=== PATIENT | female | born 1945 | race Caucasian/White ===

== ENCOUNTER 2018-05-13 19:14 | Emergency (ER) | payer MEDICARE ==
[2018-05-13 19:35] VITALS: TEMP 98.6
--- NOTE | 2018-05-13 19:38 | PCM.RRT ---
<Nieves Bean - Last Filed: 05/13/18 19:35> [employer] Nurses Assessment - Situation Date: 05/13/18 Time HOT TAR ROOFER HELPER was called: 18:49 H[employer] HELPER Location:: [facility] waiting room [employer] HELPER Reason for Call: Change in Mental Status H[employer]AR ROOFER HELPER Called By: Physician, Patient/Family Request - IV IV Inserted during HOT TAR ROOFER HELPER?: Yes - Neurological Status (Select all that apply): Responsive - Constitutional Appears: In Acute Distress - Head Head Exam: ATRAUMATIC, NORMAL INSPECTION - Eyes Eye Exam: EOMI, Normal appearance - Neurological Exam Neurological Exam: Alert, Awake, Oriented x3 Plan - Assessment of Findings&Treatment Plan HOT TAR ROOFER HELPER was called because patient became lightheaded. Patient has past medical history of diabetes and hypertension. Patient stated she did not eat all day except for coffee. Patient was found to be hypertensive. Patient was given one amp of D50. Patient was transferred to the ER. On arrival to the ER patient's B/P 148/54; O2 95%. Blood glucose 186. Patient was alert and oriented x3. <Helen Figueroa V - Last Filed: 05/18/18 16:48> Attending/Attestation - Attestation I have personally seen and examined this patient.: Yes I have fully participated in the care of the patient.: Yes I have reviewed all pertinent clinical information, including history, physical exam and plan: Yes Notes (Text): This is late computer entry for 05/13/18. Brief hospitalist note: near syncope, sweats patient is known diabetic who had not eaten the entire day. her is being treated in [facility] for code [facility]. Patient very sweaty and lethargic, unable to blood sugar and did not want to delay treatment, patient provided peripheral line given amp d50, ekg performed at bedside, and given bag of iv fluids. patient awake, alert, speaking with her son. Endorsed to ed doctor.
[2018-05-13 19:51] LABS: BASO # 0.1 K/uL (0.0-0.2); BASO % 0.8 % (0.0-2.0); EOS # 0.1 K/uL (0.0-0.7); HEMOGLOBIN 10.9 g/dL (11.0-16.0); LYMPH # 1.7 K/uL (1.0-4.3); LYMPH % 23.7 % (20.0-40.0); MEAN CELL VOLUME 83.7 fL (81.0-99.0); MEAN CORPUSCULAR HEMOGLOBIN 27.7 pg (27.0-31.0); MEAN CORPUSCULAR HGB CONC 33.1 g/dL (33.0-37.0); MEAN PLATELET VOLUME 8.7 fL (7.2-11.7); MONO # 0.5 K/uL (0.0-0.8); MONO % 7.2 % (0.0-10.0); NEUT # 4.9 K/uL (1.8-7.0); NEUT % 67.3 % (50.0-75.0); RBC 3.92 Mil/uL (3.80-5.20); RED CELL DISTRIBUTION WIDTH 14.5 % (11.5-14.5); WHITE BLOOD COUNT 7.3 K/uL (4.8-10.8)
[2018-05-13] MEDS ORDERED: Dextrose 50% SYRINGE Inj (50 ml) IV STA ×2 (20:11)
--- NOTE | 2018-05-13 20:16 | C.PDOC ---
History Of Present Illness 72 year old female patient is brought to the ED by nursing day habilitation supervisor and hospitalist from the labor and employment paralegal for evaluation of lightheadedness. Patient was in labor and employment [facility] waiting room when she began feeling sweaty, dizzy and became near-sync opal. Rapid response team was called and unable to obtain patient's blood glucose level. Patient was started on IV and given one amp of D50. Patient was sent to the ED for further evaluation. Patient denies chest pain, shortness of breath or extremity numbness/weakness. Time Seen by Provider: 05/13/18 19:18 Chief Complaint (Nursing): Altered Mental Status History Per: Patient History/Exam Limitations: no limitations Onset/Duration Of Symptoms: Hrs Current Symptoms Are (Timing): Better Additional History Per: Patient Past Medical History Reviewed: Historical Data, Nursing Documentation, Vital Signs Vital Signs: Last Vital Signs Temp 98.6 F 05/13/18 19:19 Pulse 75 05/13/18 19:19 Resp 17 05/13/18 19:19 BP 148/54 L 05/13/18 19:19 Pulse Ox 97 05/13/18 19:19 - Medical History PMH: No Chronic Diseases Surgical History: No Surg Hx Family History: States: Unknown Family Hx - Social History Hx Alcohol Use: Yes (seldom) Hx Substance Use: No Review Of Systems Cardiovascular: Negative for: Chest Pain Respiratory: Negative for: Shortness of Breath Neurological: Positive for: Dizziness, Other (lightheaded ). Negative for: Weakness, Numbness Physical Exam - Physical Exam Appears: Non-toxic, No Acute Distress, Other (teary, upset ) Skin: Normal Color, Warm, Dry Head: Atraumatic, Normacephalic Eye(s): bilateral: Normal Inspection Oral Mucosa: Moist Neck: Supple Chest: Symmetrical, No Deformity, No Tenderness Cardiovascular: Rhythm Regular, No Murmur Respiratory: Normal Breath Sounds, No Rales, No Rhonchi, No Wheezing Extremity: Normal ROM, Capillary Refill (less than 2 seconds ) Neurological/Psych: Oriented x3, Normal Speech, Normal Cognition ED Course And Treatment - Laboratory Results Result Diagrams: 05/13/18 19:46 05/13/18 19:46 Lab Interpretation: Abnormal (Hgb 10.9, Hct 32.8, HCO3 20, Ca 7.6,) ECG: Interpreted By Me ECG Rhythm: Sinus Rhythm ECG Interpretation: No Acute Changes O2 Sat by Pulse Oximetry: 97 (on RA) Pulse Ox Interpretation: Normal Progress Note: Bloodwork, urinalysis, EKG ordered. Dextrose IV administered. Reevaluation Time: 20:40 Reassessment Condition: Improved (Patient remains hemodynamically stable but s till visibly upset. is in ICU in extremely critical condition.) Disposition Counseled Patient/Family Regarding: Studies Performed, Diagnosis, Need For F ollowup - Disposition Disposition: HOME/ ROUTINE Disposition Time: 20:41 Condition: IMPROVED Instructions: Near Fainting, Stress (ED) Forms: [employer] (Macanese) - Clinical Impression Clinical Impression: Near syncope, Emotional crisis, acute reaction to stress - Scribe Statement The provider has reviewed the documentation as recorded by the Scribe (Shanna Goldstein) Provider Attestation: All medical record entries made by the Scribe were at my direction and personally dictated by me. I have reviewed the chart and agree that the record accurately reflects my personal performance of the history, physical exam, medical decision making, and the department course for this patient. I have also personally directed, reviewed, and agree with the discharge instructions and disposition.
[2018-05-13 20:18] LABS: ALB/GLOB RATIO 1.2 (1.0-2.1); ALBUMIN 3.6 g/dL (3.5-5.0); BLOOD UREA NITROGEN 15 mg/dL (7-17); CALCIUM 7.6 mg/dl (8.6-10.4); GFR NON-AFRICAN AMERICAN > 60
[2018-05-13 20:19] LABS: ALT/SGPT 19 U/L (9-52); AST/SGOT 38 U/L (14-36)
[2018-05-13 20:55] VITALS: BP 144/58; PULSE 66; RESP 16; O2SAT 98
== END 2018-05-13 20:53 | disposition home or self-care (01) ==
LOC: C.ER 19:14
DX: R55 Syncope and collapse (principal); F43.0 Acute stress reaction